=== PATIENT | female | born 1985 | race American Indian/Alaskan Native ===

== ENCOUNTER 2022-03-16 15:35 | Emergency (ER) | payer OTHER ==
--- NOTE | 2022-03-16 16:19 | Emergency Department Report ---
<MARIA LUZ HANSEN Colt - Last Filed: 03/16/22 16:14> ED General Adult HPI - General Stated complaint: CHEST AND BACK PAIN PUI?: No Time Seen by Provider: 03/16/22 16:13 Source: patient Mode of arrival: Ambulatory Limitations: No Limitations - History of Present Illness Initial comments: 36 YO COMES TO ER WITH UPPER ABD AND BACK PAIN. CP AND SOB. DIAPHORESIS COVID IMMUNIZED LMP NONE NO HX HTN - Related Data Allergies Allergy/AdvReac Type Severity Reaction Status Date / Time No Known Allergies Allergy Verified 03/17/22 04:20 ED Review of Systems Comment: All other systems reviewed and negative ED Past Medical Hx - Past Medical History Previous Medical History?: Yes Additional medical history: FIBROIDS; HEAVY PERIODS QM - Surgical History Past Surgical History?: Yes Additional Surgical History: MYMECTOMY - Family History Family history: no significant - Social History Smoking Status: Never Smoker Substance Use Type: Alcohol ED Course - Reevaluation(s) Reevaluation #1: 03/16/22 16:15 WENT TO [place] LAST WEEK AND GOT PERCOCET THERE NO OTHER HOME MEDS NO US DONE WAS ALSO AT [facility] HAD US AND SHOWED FIBROIDS PAIN TODAY IS DIFF THAN THE PAIN RESULTING IN THESE [address] SCHEDULED NEXT WEEK DR CHEN ORDERED IT ED Disposition Clinical Impression: Abdominal pain, acute, epigastric, Chest pain Disposition: 01 HOME / SELF CARE / HOMELESS Is pt being admited?: No Does the pt Need Aspirin: No Condition: Stable Instructions: Food Choices for Gastroesophageal Reflux Disease, Adult, Ldmv-[id number]-Zojd, Heartburn, Cwlv-mc-Rtms, Cholelithiasis, Aizc-py-Imoy, Nausea and Vomiting, Adult, Wamu-rd-Zyjc, Abdominal Pain, Adult, Tyij-ia-Tond, Gastroesophageal Reflux Disease, Adult, Bccv-it-Knsh, Nonspecific Chest Pain, Adult Additional Instructions: All lab test results were reviewed and are all nonactionable. Chest x-ray showed no acute cardiopulmonary abnormalities or pneumonitis. Gallbladder ultrasound showed hepatomegaly with increased hepatic echotexture, most commonly representing steatosis, also shows cholelithiasis without sonographic evidence of acute cholecystitis. Therefore take medication as needed for pain, medication for nausea and vomiting as well as antacids. Follow-up with your primary care physician in 5 to 7 days for reevaluation. Consider following up with a general surgeon on-call Dr. Anthony for further evaluation of your gallstones. Return to the ED immediately if symptoms get worse. Prescriptions: Dicyclomine [Bentyl] 20 mg PO Q6H PRN #30 tablet PRN Reason: abdominal pain Omeprazole 40 mg PO DAILY #30 cap Famotidine [Pepcid] 20 mg PO BID #60 tablet traMADoL [Ultram] 50 mg PO Q6HR PRN #12 tablet PRN Reason: Pain Ondansetron [Zofran Odt] 4 mg PO Q6HR PRN #20 tab.rapdis PRN Reason: Nausea Referrals: JOHN CISNEROS MD [Staff Physician] - 7-10 days DAYANA ANTHONY MD [Staff Physician] - 3-5 Days Forms: Work/School Release Form(ED) Print Language: LAO <JOSE ELIAS FU - Last Filed: 03/17/22 16:11> ED Review of Systems ROS: Stated complaint: CHEST AND BACK PAIN Other details as noted in HPI ED Course Vital Signs 03/16/22 03/17/22 03/17/22 16:13 03:03 06:46 Temperature 98.5 F Pulse Rate 99 H 86 82 Respiratory 18 12 14 Rate Blood Pressure 153/122 151/95 156/93 [Right] O2 Sat by Pulse 100 100 100 Oximetry ED Medical Decision Making - Lab Data Result diagrams: 03/16/22 16:28 03/16/22 16:28 - Medical Decision Making Patient was managed independently by the mid level below , I was available for consult but i wasn't directly involved in the care of this patient Critical care attestation.: If time is entered above; I have spent that time in minutes in the direct care of this critically ill patient, excluding procedure time. ED Disposition Is pt being admited?: No Does the pt Need Aspirin: No
[2022-03-16 17:01] LABS: Basophils # (Auto) 0.1 K/mm3 (0.0-0.1); Basophils % (Auto) 0.6 % (0.0-1.8); Eosinophils % (Auto) 0.3 % (0.0-4.3); Hematocrit 34.5 % (30.3-42.9); Hemoglobin 10.9 gm/dl (10.1-14.3); Lymphocytes # (Auto) 1.2 K/mm3 (1.2-5.4); Lymphocytes % (Auto) 13.4 % (13.4-35.0); Mean Corpuscular HGB Conc 32 % (30-34); Mean Corpuscular Volume 70 fl (79-97); Monocytes # (Auto) 0.4 K/mm3 (0.0-0.8); Platelet Count 355 K/mm3 (140-440)
[2022-03-16 17:09] LABS: Red Cell Distribution Width 23.5 % (13.2-15.2)
[2022-03-16 17:11] LABS: Alanine Aminotransferase 10 units/L (7-56); Albumin 4.1 g/dL (3.9-5); Blood Urea Nitrogen 13 mg/dL (7-17); Hemolysis Index 2
[2022-03-16 17:37] LABS: BUN/Creatinine Ratio 22
--- NOTE | 2022-03-16 23:12 | XRay Report ---
CHEST 2 VIEWS INDICATION / CLINICAL INFORMATION: Chest Pain. COMPARISON: None available. FINDINGS: SUPPORT DEVICES: None. HEART / MEDIASTINUM: No significant abnormality. LUNGS / PLEURA: No significant pulmonary abnormality. No significant pleural effusion. No pneumothora x. ADDITIONAL FINDINGS: No significant additional findings. IMPRESSION: 1. No acute abnormality of the chest. Signer Name: Teofilo Ordoñez MD Signed: 03/16/2022 11:08 PM Workstation Name: [id number]
[2022-03-17 01:55] LABS: Bacteria,Urine 1+ /HPF (Negative); Granular Casts,Urine 3 /LPF; Hyaline Casts,Urine 1 /LPF; Mucus,Urine 3+ /HPF
[2022-03-17] MEDS ORDERED: ONDANSETRON 4 MG/2 ML INJ IV ONE ×2 (01:57→04:17)
[2022-03-17] MEDS ORDERED: FAMOTIDINE 20 MG/2 ML INJ IV ONE (01:57)
[2022-03-17] MEDS ORDERED: MORPHINE 4 MG/1 ML INJ IV ONE (01:57)
[2022-03-17 02:01] LABS: Color,Urine Yellow (Yellow)
[2022-03-17 02:02] LABS: Bilirubin,Urine Small (Negative); Blood,Urine Negative (Negative); Urobilinogen,Urine 0.2 mg/dL (<2.0)
[2022-03-17 02:05] LABS: HCG Qualitative,Urine Negative (Negative); Ictotest,Urine Negative (Negative)
[2022-03-17] MEDS ORDERED: KETOROLAC 30 MG/1 ML INJ IV ONE (04:17)
[2022-03-17] MEDS ORDERED: SUCRALFATE 1 GM TAB PO ONE (04:17)
--- NOTE | 2022-03-17 04:57 | Ultrasound Report ---
ULTRASOUND ABDOMEN, LIMITED (RIGHT UPPER QUADRANT) INDICATION: Abdominal pain - RUQ / Epigastric. COMPARISON: None available. FINDINGS: Pancreas: Visualized portion shows no significant abnormality. Liver: Enlarged, measuring 18.3 cm, with generalized increased echotexture. No other significant abno rmality. Gallbladder: Contains multiple stones without other significant abnormalities. Sonographic Nicole's sign: Not performed. Bile ducts: No significant abnormality. Common Bile Duct measures 5.6 mm. Free fluid: None. Additional Findings: None. IMPRESSION: 1. Hepatomegaly with increased hepatic echotexture, most commonly representing steatosis. 2. Cholelithiasis without sonographic evidence of acute cholecystitis. Signer Name: Teofilo Ordoñez MD Signed: 03/17/2022 4:53 AM Workstation Name: [id number]
--- NOTE | 2022-03-17 05:54 | Emergency Department Report ---
ED Abdominal Pain HPI - General Chief Complaint: Abdominal Pain Stated Complaint: CHEST AND BACK PAIN Time Seen by Provider: 03/16/22 16:13 Source: patient Mode of arrival: Ambulatory Limitations: No Limitations - History of Present Illness Initial Comments: Patient is a 36-year-old -[place] female with a history of morbid obesity and chronic uterine fibroids who presents to the ED with complaint of acute onset persistent epigastric pain that radiates to the mid posterior thoracic area and right upper quadrant area with nausea and vomiting for the last 12 hours. Patient states that she had 2 episodes of vomiting and since then she has continued to experience persistent nausea even though she has not drank any fluids or ate any food because of worsening pain and nausea. Patient denies vaginal bleeding, vaginal discharge, fever, chills, dysuria, urinary frequency and urgency, cough, sore throat, chest pain, shortness of breath, palpitations, headache, lightheadedness, dizziness and syncope or hematemesis. MD Complaint: abdominal pain (epigastric that radiates to mid posterior thoracic area), other (nausea) -: Sudden, hour(s) (12) Location: RUQ, epigastric Radiation: back (mid-posterior thoracic area) Migration to: no migration Severity: severe Severity scale (0 -10): 8 Quality: cramping, aching, sharp Consistency: constant Improves With: rest Worsens With: eating, vomiting Associated Symptoms: denies other symptoms, nausea, anorexia. denies: vomiting, diarrhea, fever, chills, constipation, dysuria, hematemesis, hematochezia, melena, hematuria, syncope, other - Related Data Previous Rx's Medication Instructions Recorded Last Taken Type Dicyclomine [Bentyl] 20 mg PO Q6H PRN #30 tablet 03/17/22 Unknown Rx Famotidine [Pepcid] 20 mg PO BID #60 tablet 03/17/22 Unknown Rx Omeprazole 40 mg PO DAILY #30 cap 03/17/22 Unknown Rx Ondansetron [Zofran Odt] 4 mg PO Q6HR PRN #20 tab.rapdis 03/17/22 Unknown Rx traMADoL [Ultram] 50 mg PO Q6HR PRN #12 tablet 03/17/22 Unknown Rx Allergies Allergy/AdvReac Type Severity Reaction Status Date / Time No Known Allergies Allergy Verified 03/17/22 04:20 ED Review of Systems ROS: Stated complaint: CHEST AND BACK PAIN Other details as noted in HPI Constitutional: denies: chills, fever Eyes: denies: eye pain, eye discharge, vision change ENT: denies: ear pain, throat pain Respiratory: denies: cough, shortness of breath, wheezing Cardiovascular: denies: chest pain, palpitations Endocrine: no symptoms reported Gastrointestinal: abdominal pain (Epigastric pain), nausea, vomiting. denies: diarrhea, constipation, hematemesis, melena Genitourinary: denies: urgency, dysuria, discharge Musculoskeletal: back pain (Mid posterior thoracic pain). denies: joint swelling, arthralgia Skin: denies: rash, lesions Neurological: denies: headache, weakness, paresthesias Psychiatric: denies: anxiety, depression Hematological/Lymphatic: denies: easy bleeding, easy bruising ED Past Medical Hx - Past Medical History Previous Medical History?: Yes Additional medical history: FIBROIDS; HEAVY PERIODS QM - Surgical History Past Surgical History?: Yes Additional Surgical History: MYMECTOMY - Social History Smoking Status: Never Smoker Substance Use Type: Alcohol - Medications Home Medications: Home Medications Medication Instructions Recorded Confirmed Last Taken Type Dicyclomine [Bentyl] 20 mg PO Q6H PRN #30 tablet 03/17/22 Unknown Rx Famotidine [Pepcid] 20 mg PO BID #60 tablet 03/17/22 Unknown Rx Omeprazole 40 mg PO DAILY #30 cap 03/17/22 Unknown Rx Ondansetron [Zofran Odt] 4 mg PO Q6HR PRN #20 tab.rapdis 03/17/22 Unknown Rx traMADoL [Ultram] 50 mg PO Q6HR PRN #12 tablet 03/17/22 Unknown Rx ED Physical Exam - General Limitations: No Limitations General appearance: alert, in no apparent distress - Head Head exam: Present: atraumatic, normocephalic, normal inspection - Eye Eye exam: Present: normal appearance, PERRL, EOMI Pupils: Present: normal accommodation - ENT ENT exam: Present: normal exam, normal orophraynx, mucous membranes moist, TM's normal bilaterally, normal external ear exam - Neck Neck exam: Present: normal inspection, full ROM. Absent: tenderness - Respiratory Respiratory exam: Present: normal lung sounds bilaterally. Absent: respiratory distress, wheezes, rales, rhonchi, chest wall tenderness, accessory muscle use, decreased breath sounds, prolonged expiratory - Cardiovascular Cardiovascular Exam: Present: regular rate, normal rhythm, normal heart sounds. Absent: systolic murmur, diastolic murmur, rubs, gallop - GI/Abdominal GI/Abdominal exam: Present: soft, tenderness (Palpable epigastric and right upper quadrant tenderness, negative Nicole sign), normal bowel sounds. Absent: guarding, rebound, hyperactive bowel sounds, hypoactive bowel sounds, mass, bruit, hernia - Extremities Exam Extremities exam: Present: normal inspection, full ROM, normal capillary refill. Absent: tenderness - Back Exam Back exam: Present: normal inspection, full ROM. Absent: tenderness, CVA tenderness (R), CVA tenderness (L), muscle spasm, paraspinal tenderness, vertebral tenderness - Neurological Exam Neurological exam: Present: alert, oriented X3, CN II-XII intact, normal gait, reflexes normal - Psychiatric Psychiatric exam: Present: normal affect, normal mood - Skin Skin exam: Present: warm, dry, intact, normal color. Absent: rash ED Course Vital Signs 03/16/22 03/17/22 16:13 03:03 Temperature 98.5 F Pulse Rate 99 H 86 Respiratory 18 12 Rate Blood Pressure 153/122 151/95 [Right] O2 Sat by Pulse 100 100 Oximetry ED Medical Decision Making - Lab Data Result diagrams: 03/16/22 16:28 03/16/22 16:28 - Radiology Data Radiology results: report reviewed, [place] [id number] Ultrasound Report Signed Patient: RODRÍGUEZ VAZQUEZ MR#: [id number] : 1985 Acct:[id number] Age/Sex: 36 / F ADM Date: 03/16/22 Loc: ED Attending Dr: Ordering Physician: BETSY BARRERA Date of Service: 03/17/22 Procedure(s): US abdomen limited Accession Number(s): [id number] cc: BETSY BARRERA ULTRASOUND ABDOMEN, LIMITED (RIGHT UPPER QUADRANT) INDICATION: Abdominal pain - RUQ / Epigastric. COMPARISON: None available. FINDINGS: Pancreas: Visualized portion shows no significant abnormality. Liver: Enlarged, measuring 18.3 cm, with generalized increased echotexture. No other significant abnormality. Gallbladder: Contains multiple stones without other significant abnormalities. Sonographic Nicole's sign: Not performed. Bile ducts: No significant abnormality. Common Bile Duct measures 5.6 mm. Free fluid: None. Additional Findings: None. IMPRESSION: 1. Hepatomegaly with increased hepatic echotexture, most commonly representing steatosis. 2. Cholelithiasis without sonographic evidence of acute cholecystitis. Signer Name: Teofilo Ordoñez MD Signed: 03/17/2022 4:53 AM Workstation Name: [id number] Transcribed By: MN Dictated By: Teofilo Ordoñez MD Electronically Authenticated By: Teofilo Ordoñez MD Signed Date/Time: 03/17/22452 DD/ 1 TD/TT: [facility] [address] [place] [address] XRay Report Signed Patient: RODRÍGUEZ VAZQUEZ MR#: [id number] : 1985 Acct:[id number] Age/Sex: 36 / F ADM Date: 03/16/22 Loc: ED Attending Dr: Ordering Physician: MARIA LUZ HANSEN Date of Service: 03/16/22 Procedure(s): XR chest routine 2V Accession Number(s): [id number] cc: MARIA LUZ HANSEN Fluoro Time In Minutes: CHEST 2 VIEWS INDICATION / CLINICAL INFORMATION: Chest Pain. COMPARISON: None available. FINDINGS: SUPPORT DEVICES: None. HEART / MEDIASTINUM: No significant abnormality. LUNGS / PLEURA: No significant pulmonary abnormality. No significant pleural effusion. No pneumothorax. ADDITIONAL FINDINGS: No significant additional findings. IMPRESSION: 1. No acute abnormality of the chest. Signer Name: Teofilo Ordoñez MD Signed: 03/16/2022 11:08 PM Workstation Name: [id number] Transcribed By: JOSE Dictated By: Teofilo Ordoñez MD Electronically Authenticated By: Teofilo Ordoñez MD Signed Date/Time: 03/16/222307 DD/ 07 TD/TT: - Medical Decision Making This is a 36-year-old -[place] female with a history of morbid obesity and chronic uterine fibroids who presents to the ED with complaint of acute onset persistent epigastric pain that radiates to the mid posterior thoracic area and right upper quadrant area with nausea and vomiting for the last 12 hours. Patient states that she had 2 episodes of vomiting and since then she has continued to experience persistent nausea even though she has not drank any fluids or ate any food because of worsening pain and nausea. In the ED, patient is alert and oriented x3 and is not in any distress. All lab test results were reviewed and are all nonactionable except for mild hyponatremia of 133 mmol/L. Chest x-ray showed no acute cardiopulmonary abnormalities or pneumonitis. Right upper quadrant gallbladder ultrasound showed hepatomegaly with increased hepatic echotexture, most commonly representing steatosis. It also showed cholelithiasis without sonographic evidence of acute cholecystitis. Patient was treated for pain and was given antacids and antiemetics. On reevaluation, patient's pain is well controlled medication. Patient was discharged home on medications and advised to follow-up with her primary care physician in 5 to 7 days for reevaluation. Patient was also advised to consider following up with a general surgeon Dr. Anthony for further evaluation of cholelithiasis. Patient otherwise advised return to the ED immediately if symptoms get worse. - Differential Diagnosis GERD; cholelithiasis; cholecystitis; UTI; pancreatitis; kidney stones; ACS Critical care attestation.: If time is entered above; I have spent that time in minutes in the direct care of this critically ill patient, excluding procedure time. ED Disposition Clinical Impression: Abdominal pain, acute, epigastric, Nausea and vomiting in adult patient, Cholelithiasis without cholecystitis GERD (gastroesophageal reflux disease) Qualifiers: Esophagitis presence: esophagitis presence not specified Qualified Code(s): K21.9 - Gastro-esophageal reflux disease without esophagitis Disposition: HOME / SELF CARE / HOMELESS Is pt being admited?: No Does the pt Need Aspirin: No Condition: Stable Instructions: Heartburn, Mhcu-vo-Lxzr, Abdominal Pain, Adult, Wejo-kf-Ubre, Nausea and Vomiting, Adult, Vvqq-oi-Ihsg, Food Choices for Gastroesophageal Reflux Disease, Adult, Xxzt-kn-Tgvb, Gastroesophageal Reflux Disease, Adult, Qeku-jd-Bdoz, Cholelithiasis, Idts-qa-Xomk Additional Instructions: All lab test results were reviewed and are all nonactionable. Chest x-ray showed no acute cardiopulmonary abnormalities or pneumonitis. Gallbladder ultrasound showed hepatomegaly with increased hepatic echotexture, most commonly representing steatosis, also shows cholelithiasis without sonographic evidence of acute cholecystitis. Therefore take medication as needed for pain, medicat ion for nausea and vomiting as well as antacids. Follow-up with your primary care physician in 5 to 7 days for reevaluation. Consider following up with a general surgeon on-call Dr. Anthony for further evaluation of your gallstones. Return to the ED immediately if symptoms get worse. Prescriptions: Dicyclomine [Bentyl] 20 mg PO Q6H PRN #30 tablet PRN Reason: abdominal pain Omeprazole 40 mg PO DAILY #30 cap Famotidine [Pepcid] 20 mg PO BID #60 tablet traMADoL [Ultram] 50 mg PO Q6HR PRN #12 tablet PRN Reason: Pain Ondansetron [Zofran Odt] 4 mg PO Q6HR PRN #20 tab.rapdis PRN Reason: Nausea Referrals: DAYANA ANTHONY MD [Staff Physician] - 3-5 Days JOHN CISNEROS MD [Staff Physician] - 7-10 days Forms: Work/School Release Form(ED) Time of Disposition: 06:00 Print Language: MALIAN
[2022-03-17 06:52] VITALS: BP 156/93
--- NOTE | 2022-03-17 18:36 | Electrocardiograph Report ---
[facility] Test Date: 2022-03-16 Test Time: 16:25:33 Pat Name: RODRÍGUEZ VAZQUEZ Department: Room: Gender: F Consumer Analyst: TSERING : 1985 Requested By: MARIA LUZ HANSEN Order Number: [id number] Reading MD: Tatiana Stephenson Measurements Intervals [place] Rate: 90 P: 55 [place]: 152 QRS: 30 QRSD: 82 T: 13 QT: 394 QTc: 482 Interpretive Statements Sinus rhythm No previous ECG available for comparison Electronically Signed On 03-17-2022 18:35:14 EDT by Tatiana Stephenson
== END 2022-03-17 06:49 | disposition home or self-care (01) ==
LOC: ED 15:35
DX: R10.13 Epigastric pain (principal); R07.89 Other chest pain; R06.02 Shortness of breath; Z72.89 Other problems related to lifestyle; Z79.899 Other long term (current) drug therapy
CPT/HCPCS: 36415; 71046; 76705; 80053; 81001; 81025; 84484; 85025; 93005; 96374; 96375; 96376; 99284; J1885; J2270; J2405; J3490

== ENCOUNTER 2022-04-15 06:47 | Day surgery (SDC) | payer OTHER ==
[2022-04-11 14:01] LABS: Color,Urine Straw (Yellow)
[2022-04-11 14:18] LABS: WBC,Urine < 1.0 /HPF (0.0-6.0)
[~2022-04-15 06:47] MED LIST: ACETAMINOPHEN 500 MG TAB PO SCH; CELECOXIB 200 MG CAP PO NR; GABAPENTIN 300 MG CAP PO NR; INDOCYANINE GREEN 25 MG VIAL IVP SCH; LACTATED RINGERS 1,000 ML IV SCH; MIDAZOLAM 2 MG/2 ML INJ IV NR; SCOPOLAMINE TRANSDERMAL PATCH 72 HR TD NR
[2022-04-15] MEDS ORDERED: ceFAZolin/STERILE WATER 2 GM/20 ML SYRINGE IV NR (07:00)
--- NOTE | 2022-04-15 07:15 | Anesthesia Consultation ---
Anesthesia Consult and Med Hx Date of service: 04/15/22 - Airway Anesthetic Teeth Evaluation: Good ROM Head & Neck: Adequate Mental/Hyoid Distance: Adequate Mallampati Class: Class II Intubation Access Assessment: Probably Good - Pulmonary Exam CTA: Yes - Cardiac Exam Cardiac Exam: RRR - Pre-Operative Health Status ASA Pre-Surgery Classification: ASA3 Proposed Anesthetic Plan: General - Pulmonary Hx Smoking: No Hx Asthma: Yes (INHALER USE PRN; used inhaler this morning ) Hx Sleep Apnea: Yes (DX SLEEP APNEA , NO CPAP USE.) - Cardiovascular System Hx Hypertension: No Hx Heart Attack/AMI: No Hx Cardia Arrhythmia: No - Central Nervous System Hx Back Pain: Yes (WITH RIGHT LEG PAIN) - Gastrointestinal Hx Gastroesophageal Reflux Disease: Yes (took omeprazole this morning) - Endocrine Hx Renal Disease: No Hx Liver Disease: No - Hematic Hx Anemia: Yes - Other Systems Hx Alcohol Use: No Hx Cancer: No Hx Obesity: Yes (BMI 54.6) - Additional Comments Anesthesia Medical History Comments: No GAC. No FHAC.
--- NOTE | 2022-04-15 07:15 | Anesthesia Day of Surgery ---
Anesthesia Day of Surgery - Day of Surgery Patient Examined: Yes Patient H&P Reviewed: Yes Patient is NPO: Yes
[2022-04-15] MEDS ORDERED: SUCCINYLCHOLINE CHLORIDE 200 MG/10 ML INJ MDV ONE (07:24)
[2022-04-15] MEDS ORDERED: LIDOCAINE MPF (2%) 20 MG/1 ML VIAL 5 ML ONE (07:24)
[2022-04-15] MEDS ORDERED: ONDANSETRON 4 MG/2 ML INJ ONE (07:24)
[2022-04-15] MEDS ORDERED: ROCURONIUM 50 MG/5 ML INJ IV ONE (07:24)
[2022-04-15] MEDS ORDERED: dexAMETHasone 20 MG/5 ML VIAL ONE (07:24)
[2022-04-15] MEDS ORDERED: ePHEDrine SULFATE 50 MG/1 ML INJ ONE (07:25)
[2022-04-15] MEDS ORDERED: propofoL 200 MG/20 ML VIAL IV ONE ×2 (07:25)
[2022-04-15] MEDS ORDERED: HYDROmorphone 1 MG/1 ML INJ ONE (07:25)
[2022-04-15] MEDS ORDERED: HYDROmorphone 0.5 MG/0.5 ML INJ IV PRN (07:30)
[2022-04-15] MEDS ORDERED: ONDANSETRON 4 MG/2 ML INJ IV PRN (07:30)
[2022-04-15] MEDS ORDERED: oxyCODONE /ACETAMINOPHEN 5-325MG TAB PO PRN (07:30)
[2022-04-15] MEDS ORDERED: LIDOCAINE (1%) 10 MG/1 ML VIAL 20 ML MDV ONE (07:35)
[2022-04-15] MEDS ORDERED: BUPIVACAINE/PF (0.5%) 5 MG/1 ML 30 ML VIAL INFILTRATI ONE ×2 (07:35→09:19)
[2022-04-15] MEDS ORDERED: SODIUM CHLORIDE 0.9% IRR 1,500 ML BOTTLE IR ONE (09:19)
[2022-04-15] MEDS ORDERED: LIDOCAINE (1%) 10 MG/1 ML VIAL 20 ML MDV INFILTRATI ONE (09:19)
[2022-04-15] MEDS ORDERED: SUGAMMADEX SODIUM 200 MG/2 ML VIAL IV ONE (09:36)
--- NOTE | 2022-04-15 10:04 | Short Stay Summary ---
Short Stay Documentation Date of service: 04/15/22 - History Principal diagnosis: symptomatic cholelithiasis H&P: obtained from office - Allergies and Medications Current Medications: Allergies hydrocodone Adverse Reaction (Verified 04/15/22 08:21) Nausea ALVOCODO Allergy (Uncoded 04/15/22 08:21) Swelling Home Medications Medication Instructions Recorded Confirmed Last Taken Type Omeprazole 40 mg PO DAILY #30 cap 03/17/22 04/08/22 Unknown Rx Ondansetron [Zofran Odt] 4 mg PO Q6HR PRN #20 tab.rapdis 03/17/22 04/08/22 Unknown Rx ALPRAZolam [Xanax TAB] 0.5 mg PO BID 04/08/22 04/08/22 Unknown History Acetaminophen/Codeine [Tylenol 1 tab PO Q4HR PRN 04/08/22 04/08/22 Unknown History /Codeine # 3 tab] Albuterol Sulfate [Proventil Hfa] 2 puff IH PRN PRN 04/08/22 04/08/22 Unknown History Dicyclomine [Bentyl] 20 mg PO PRN PRN 04/08/22 04/08/22 Unknown History Famotidine [Pepcid] 20 mg PO DAILY 04/08/22 04/08/22 Unknown History Ferrous Sulfate [Feosol] 325 mg PO QDAY 04/08/22 04/08/22 Unknown History Gabapentin [Neurontin] 300 mg PO DAILY 04/08/22 04/08/22 Unknown History Active Medications Acetaminophen (Acetaminophen 500 Mg Tab) 1,000 mg PO PREOP ROMMEL Stop: 04/15/22 23:59 Last Admin: 04/15/22 07:30 Dose: 1,000 mg Celecoxib (Celecoxib 200 Mg Cap) 200 mg PO PREOP NR Stop: 04/15/22 23:59 Last Admin: 04/15/22 07:30 Dose: 200 mg Gabapentin (Gabapentin 300 Mg Cap) 300 mg PO PREOP NR Stop: 04/15/22 23:59 Hydromorphone HCl (Hydromorphone 0.5 Mg/0.5 Ml Inj) 0.5 mg IV Q10MIN PRN PRN Reason: Pain , Severe (7-10) Stop: 04/15/22 20:00 Lactated Ringer's (Lactated Ringers) 1,000 mls @ 100 mls/hr IV DIRECT ROMMEL Stop: 04/15/22 23:59 Last Admin: 04/15/22 07:30 Dose: 100 mls/hr Cefazolin Sodium 3 gm/ Sodium (Chloride) 100 mls @ 100 mls/30 min IV PREOP NR Stop: 04/15/22 15:00 Indocyanine Green (Indocyanine Green 25 Mg Vial) 2.5 mg IVP ONCE ROMMEL Stop: 04/15/22 23:00 Last Admin: 04/15/22 07:58 Dose: 2.5 mg Methocarbamol (Methocarbamol 750 Mg Tab) 750 mg PO PREOP ROMMEL Stop: 04/15/22 17:00 Last Admin: 04/15/22 07:30 Dose: 750 mg Midazolam HCl (Midazolam 2 Mg/2 Ml Inj) 2 mg IV PREOP NR Stop: 04/15/22 23:59 Ondansetron HCl (Ondansetron 4 Mg/2 Ml Inj) 4 mg IV ONCE PRN PRN Reason: Nausea And Vomiting Stop: 04/15/22 20:00 Oxycodone/Acetaminophen (Oxycodone /Acetaminophen 5-325mg Tab) 1 tab PO ONCE PRN PRN Reason: Pain, Moderate (4-6) Stop: 04/15/22 20:00 Scopolamine (Scopolamine Transdermal Patch 72 Hr) 1 each TD PREOP NR Stop: 04/15/22 23:59 Last Admin: 04/15/22 07:30 Dose: 1 each - Brief post op/procedure progress note Date of procedure: 04/15/22 Pre-op diagnosis: Symptomatic cholelithiasis Post-op diagnosis: same Procedure: Robotic assisted laparoscopic cholecystectomy Anesthesia: GETA, local Findings: Mildly distended gallbladder containing medium and large stone. Surgeon: YUSUF LÓPEZ (Assist: Sharan Cotton ) Estimated blood loss: minimal Pathology: list (Gallbladder) Specimen disposition: to lab Condition: stable - Hospital course Hospital course: Patient observed in PACU and discharged home in stable condition - Disposition Condition at discharge: Good Disposition: 01 HOME / SELF CARE / HOMELESS Short Stay Discharge Plan Activity: other (No heavy lifting for 1 week.) Diet: low fat Wound: open to air, per your surgeon's advice Additional Instructions: Please see printed discharge instructions Follow up with: ALEX FOY MD [Primary Care Provider] - 7 Days YUSUF LÓPEZ DO [Staff Physician] - 14 Days Prescriptions: Ibuprofen [Motrin 800 MG tab] 800 mg PO Q8HR PRN #30 tablet PRN Reason: Pain, Moderate (4-6) oxyCODONE /ACETAMINOPHEN [Percocet 5/325 mg] 1 tab PO Q6H PRN #15 tablet PRN Reason: Pain , Severe (7-10)
--- NOTE | 2022-04-15 11:17 | Post Anesthesia Evaluation ---
- Post Anesthesia Evaluation Patient Participated: Yes Airway Patent: Yes Stable Respiratory Function: Yes Nausea/Vomiting: No Temp > 96.8F: Yes Pain Manageable: Yes Adequeate Hydration: Yes Anesthesia Complications: No
[2022-04-15 16:19] VITALS: BP 122/56
--- NOTE | 2022-04-15 17:35 | Operative Report ---
Operative Report Operative Report: Date of procedure: 04/15/22 Pre-op diagnosis: Symptomatic cholelithiasis Post-op diagnosis: same Procedure: Robotic assisted laparoscopic cholecystectomy Anesthesia: GETA, local Findings: Mildly distended gallbladder containing medium and large stone. Surgeon: YUSUF LÓPEZ (Assist: Sharan Cotton ) Estimated blood loss: minimal Pathology: list (Gallbladder) Specimen disposition: to lab Condition: stable Hospital course: Patient observed in PACU and discharged home in stable condition Condition at discharge: Good Disposition: 01 HOME / SELF CARE / HOMELESS HPI an indication: 36-year-old female who presented to the surgery clinic with intermittent upper abdominal pain, n/v. Patient with w/u including Ct scan A/p and u/s abdomen which revealed cholelithiasis without cholecystitis or bile duct dilatation. Labs including CBC, LFTs were unremarkable. It was recommended that the patient undergo cholecystectomy. All risks, benefits, alternatives to surgery were discussed in detail and questions answered. Consent was obtained for robotic assisted laparoscopic, possible open cholecystectomy, possible cholangiogram. Procedure in detail: The patient was identified in the preoperative area and taken back to the operating room, placed on the operating room table in supine position. After anesthesia was induced, the abdomen was prepped and draped in usual sterile fashion and timeout was performed. Local anesthetic was infiltrated into all of the skin incision sites. A gavi incision was made in the LUQ through which a Veress needle was inserted. The Veress needle positioning was confirmed using the saline drop test and the abdomen insufflated to 15 mmHg without incident. A supraumbilical incision was made through which a 5 mm Optiview trocar was placed. The abdomen was inspected and there was no underlying injury to the abdominal structures. The veress needle was identified and removed. 8 mm robotic trocars were then placed in the right upper quadrant, left upper quadrant, and left lateral abdomen under direct visualization. The 5 mm supraumbilical trocar was removed and replaced with an 12 mm trocar. An 8 mm robotic trocar was inserted into the 12 mm trocar to facilitate docking of the robotic camera. The patient was placed in reverse Trendelenburg and tilted to the left. The robot was then docked. A Gideon grasper was placed in arm #1, a camera in arm #2, a monopolar hook in arm #3, and a prograsp in arm #4. The surgeon was then transferred to the console. The gallbladder was mildly distended. The fundus of the gallbladder was grasped and retracted cephalad to the liver. The infundibulum was retracted laterally. Using firefly, the cystic duct was identified. The cystic duct and artery were carefully skeletonized in the usual fashion. The medial and lateral peritoneal attachments to the gallbladder were dissected using a combination of blunt dissection and hook electrocautery. The cystic duct and artery were the only 2 structures seen entering the gallbladder and the critical view was successfully obtained. 2 hemolock clips were placed on the proximal aspect of the cystic duct and 1 distally, and 1 hemolock clip was placed on the proximal aspect of the cystic artery and 1 distally. Both structures were transected in between the clips using EndoShears by the assistant brand manager. The gallbladder was dissected from the liver bed using electrocautery. Once completely dissected it was placed into the right upper quadrant and the liver bed was examined for hemostasis. This was carefully ensured. The clips were visualized and intact. There was no bleeding or bile leakage. The robot was then undocked and the surgeon scrubbed back in. The remainder of the case was performed laparoscopically. The gallbladder was removed via the umbilical port. The fascia of this port was was closed with interrupted 0 Vicryl suture using the Miller Aguilera device. The raytec in the abdomen was removed. The other ports were then removed under direct visualization. Skin incisions were closed with 4-0 Monocryl subcuticular stitches and skin glue. All skin incisions were once again infiltrated with local anesthetic. At the end case all sponge, instrument, sharp counts were correct 2. The patient was awoken from anesthesia, extubated, and taken to PACU in stable condition.
== END 2022-04-15 12:00 | disposition home or self-care (01) ==
LOC: OR 06:47
PROVIDERS: ATTEND Surgery
DX: K80.10 Calculus of gallbladder with chronic cholecystitis without obstruction (principal); J45.909 Unspecified asthma, uncomplicated; K21.9 Gastro-esophageal reflux disease without esophagitis; E66.9 Obesity, unspecified; F41.9 Anxiety disorder, unspecified; D64.9 Anemia, unspecified; Z20.822 Contact with and (suspected) exposure to COVID-19; Z88.8 Allergy status to other drugs, medicaments and biological substances; Z79.899 Other long term (current) drug therapy; Z87.440 Personal history of urinary (tract) infections; Z98.890 Other specified postprocedural states; Z68.43 Body mass index [BMI] 50.0-59.9, adult
CPT/HCPCS: 47562; 81001; 81025; 87086; 88304; J0330; J0690; J1100; J1170; J2405; J2704; J3490; J7120; S2900; U0003; J2250